=== PATIENT | female | born 1935 | race Caucasian/White ===

== ENCOUNTER 2023-11-20 01:37 | Emergency (ER) | payer MEDICARE, OTHER, SELFPAY ==
[2023-11-20] VITALS (8 sets, daily range): BP systolic 135–159; BP diastolic 66–94; BMI 27.0
--- NOTE | 2023-11-20 01:45 | ED.GENMED ---
History of Present Illness
<TAVO Mcnamara - Last Filed: 11/20/23 05:23>
General
Chief Complaint: Chest Pain
Time Seen by Provider: 11/20/23 01:39
History of Present Illness
History of Present Illness:
Pt is an 88 y/o female presenting with chest pain x1 hour. She describes it as a pressure over her right chest that radiates to her neck and back. She states it lasted for 20 minutes and went away on its own. She denies this ever happening in the
past. She states she has baseline shortness of breath but denies any increased shortness of breath. She states she always has swelling in her legs and it is currently baseline for her. She denies any dizziness, vision changes, cough, palpitations,
abdominal pain, nausea, vomiting.
Past History
<TAVO Mcnamara - Last Filed: 11/20/23 05:23>
Past History
ED Past Medical History: Asthma, Cancer (thyroid), Valvular disease, Hypothyroidism and Other (pulm HTN)
ED Past Surgical History: Orthopedic and Other (thyroidectomy, pelvic lift sx)
Social History
Tobacco: Non-smoker
Alcohol: None
Personal:
Living: with family
Employment: Retired
Family History
Family History: Other (n/c)
Phy Exam
<TAVO Mcnamara - Last Filed: 11/20/23 05:23>
Physical Exam
Physical Exam:
GENERAL: Alert , in no apparent distress
EYE: pupils equal and reactive
Throat: Airway intact, no exudates
NECK: Supple, no significant adenopathy.
CARDIAC: Irregular rhythm. No murmurs
LUNGS: Clear breath sounds bilaterally, no acute respiratory distress, no wheezes/rales/rhonchi
ABDOMEN: Soft, nondistended, nontender, no cvat
NEUROLOGICAL: Alert and oriented, no focal neuro deficits
SKIN: Warm and dry, skin intact.
MUSCULOSKELETAL: B/l LE edema. 2+ dorsalis pedis pulses
PSYCH: Normal and appropriate interaction.
Scores
<TAVO Mcnamara - Last Filed: 11/20/23 05:23>
Heart Score for Chest Pain Patients
STEMI patient?: No
History: Slightly or Non-Suspicious
ECG: Normal
Age: >/= 65 years
Risk Factors: >/= 3 Risk Factors or History of CAD
Troponin: </= Normal Limit
Heart Score for Chest Pain Patients: 4
Heart Score Risk: 20.3% MACE over next 6 weeks
Course
<TAVO Mcnamara - Last Filed: 11/20/23 05:23>
Orders/Labs/Results
Orders:
Orders
11/20/23 01:39
Electrocardiogram (*1) Urgent
Reason for Study: Chest Pain
EKG- Treatment ONCE
11/20/23 01:47
Complete Blood Count/With Diff Urgent
Comprehensive Metabolic Panel Urgent
Troponin I Urgent
11/20/23 02:09
CR Chest - 2 Views Urgent
Comment:
Reason For Exam: ches pain
11/20/23 04:00
Troponin I Urgent
Abnormal Lab Results
11/20/23
01:47
RBC 4.05 L 10^6/uL
(4.20-5.40)
MCH 32.3 H pg
(27.0-31.0)
BUN 25 H mg/dl
(7-17)
11/20/23 01:47
11/20/23 01:47
Vital Signs
Initial and Last Documented VS:
Initial Vital Signs
Pulse Ox
99
11/20/23 01:42
Last Documented Vital Signs
Temp Pulse Resp BP Pulse Ox
97.9 F 67 12 135/ 97
11/20/23 01:43 11/20/23 04:00 11/20/23 04:00 11/20/23 04:00 11/20/23 04:00
mc;Tal Almaguer DO - Last Filed: 11/20/23 04:56>
Orders/Labs/Results
Orders:
Orders
11/20/23 01:39
Electrocardiogram (*1) Urgent
Reason for Study: Chest Pain
EKG- Treatment ONCE
11/20/23 01:47
Complete Blood Count/With Diff Urgent
Comprehensive Metabolic Panel Urgent
Troponin I Urgent
11/20/23 02:09
CR Chest - 2 Views Urgent
Comment:
Reason For Exam: ches pain
11/20/23 04:00
Troponin I Urgent
Abnormal Lab Results
11/20/23
01:47
RBC 4.05 L 10^6/uL
(4.20-5.40)
MCH 32.3 H pg
(27.0-31.0)
BUN 25 H mg/dl
(7-17)
11/20/23 01:47
11/20/23 01:47
Vital Signs
Initial and Last Documented VS:
Initial Vital Signs
Pulse Ox
99
11/20/23 01:42
Last Documented Vital Signs
Temp Pulse Resp BP Pulse Ox
97.9 F 67 12 135/ 97
11/20/23 01:43 11/20/23 04:00 11/20/23 04:00 11/20/23 04:00 11/20/23 04:00
<TAVO Mcnamara - Last Filed: 11/20/23 05:23>
*Critical Care Note
Total Time (30-74mins, 75-104mins- exclusive of procedures): Not Applicable
ED Attending Note
<TAVO Mcnamara - Last Filed: 11/20/23 05:23>
-
Portions of this chart may have been created with voice recognition software.� Occasional wrong word or��sound alike� substitutions may have occurred due to the inherent limitations of voice recognition software.
<Tal Almaguer DO - Last Filed: 11/20/23 04:56>
ED Attending Note
Patient seen and examined by attending physician: Yes
I performed the substantive portion of visit, reviewed & personally made and approve the management plan that is documented in note by myself or KELSY.: Yes
ED Attending Note:
I have reviewed Sunny's note.
Patient had episode of chest discomfort that woke her from sleep. Pain lasted for maybe 10 minutes or so. No chest pain now. No history of coronary artery disease.
General: Awake, Alert, Oriented X3. No acute distress.
Vitals: unremarkable
Head: Atraumatic
Eyes: Pupils equal, EOMI
Throat: Airway intact, no exudates
Neck: Trachea midline
Lungs: Clear and equal b/l
Heart: Regular rate, no murmurs
Abd: Soft, Nontender, No pulsatile mass
Rectal:
Neuro: Cranial nerves intact, muscle strength equal bilaterally, cerebellar exam normal
Skin: Warm, dry, no rash
Extremities: pulses equal b/l, no edema
EKG: Normal sinus rhythm with PACs, no ischemic changes
Chest x-ray shows no acute disease by my personal evaluation
Will check troponin x 2.
Discharge Plan
Departure
Patient Disposition: Home (Routine Discharge)
Date of Disposition: 11/20/23
Time of Disposition: 04:55
Patient with high blood pressure during this ER visit?: Yes
Condition: Good
Discharge Problem:
Chest pain
Instructions: Chest Pain DCA Follow Up, BLOOD PRESSURE
Prescriptions:
No Action
thyroid (pork) [[place] Thyroid] 30 MG tablet
90 mg PO DAILY@0530
coenzyme Q10 50 MG tablet,chewable
1 tab PO BID
Eliquis 5 mg Tablet
5 mg PO BID
Jardiance 10 mg Tablet
10 mg PO DAILY
Cardio Plus
1 tab PO BID
Chaga
1 tab PO QPM
GS-Similase
1 tab PO DAILY
Pregnenole
10 mg PO DAILY
Zinc Plus Zilium
1 tab PO DAILY
garlic
1 tab PO BID
magnesium
1 tab PO DAILY@1500
magnesium
2 tab PO DAILY@2000
quercetin
250 mg PO DAILY
furosemide 40 MG tablet
40 mg PO BID
D-Ribose
0.25 tsp PO DAILY@1200
pantoprazole [pantoprazole] 40 mg tablet,delayed release (DR/EC)
40 mg PO DAILY Qty: 30 0RF
Rx Instructions:
Take for 30 days post procedure, then stop
Referrals:
UNKNOWN - PT NOT,INTERVIEWE [Family Provider] -
Interventions
Interventions:
*Risk Screen - Suicide Last Done: 11/20/23 01:43
*General Assessment Last Done: 11/20/23 01:43
*Neglect/Abuse Screening Last Done: 11/20/23 01:43
*ED COVID-19 Vaccine History Last Done: 11/20/23 01:43
ED- Cardiac Assessment Last Done: 11/20/23 02:40
Discharge Date and Time
Print Language: [place]
[2023-11-20 02:39] LABS: % Eosinophils 3.8 % (0-6); % Immature Granulocytes 0.1 % (0-0.5); % Lymphocytes 45.2 % (20.5-51.1); % Monocytes 7.4 % (1.7-9.3); % Neutrophils 42.5 % (42.2-75.2); Absolute Basophils 0.1 10^3/uL (0-0.2); Absolute Eosinophils 0.3 10^3/uL (0-0.7); Absolute Lymphocytes 3.1 10^3/uL (1.2-3.4); Absolute Monocytes 0.5 10^3/uL (0.1-0.6); Absolute Neutrophils 2.9 10^3/uL (1.4-6.5); Hematocrit 37.5 % (37.0-47.0); Hemoglobin 13.1 g/dL (12.0-16.0); Mean Corp Hgb Conc. 34.9 g/dL (33.0-37.0); Mean Corpuscular Hgb 32.3 pg (27.0-31.0); Mean Corpuscular Volume 92.6 fL (81.0-99.0); Mean Platelet Volume 10.4 fL (7.4-10.4); Nucleated Red Blood Cells % 0 %; Platelet Count 196 10^3/uL (130-400); Red Blood Cell Count 4.05 10^6/uL (4.20-5.40); Red Cell Dist. Width 13.3 % (11.5-14.5); White Blood Cell Count 6.9 10^3/uL (4.8-10.8)
[2023-11-20 02:54] LABS: ALT (SGPT) 25 U/L (0-35); AST (SGOT) 36 U/L (14-36); Albumin 3.9 g/dl (3.5-5.0); Alkaline Phosphatase 80 U/L (38-126); Blood Urea Nitrogen 25 mg/dl (7-17); Calcium 9.1 mg/dl (8.4-10.2); Carbon Dioxide 30 mmol/L (22-30); Chloride 102 mmol/L (98-107); Estimated Creatinine Clearance 44 ml/min; Glucose 93 mg/dl (70-99); Potassium 3.5 mmol/L (3.5-5.1); Sodium 139 mmol/L (135-145); Total Bilirubin 0.5 mg/dl (0.2-1.3); Total Protein 6.8 g/dl (6.3-8.2); eGFR > 60.00
[2023-11-20 03:05] LABS: Troponin I < 0.012 ng/ml
[2023-11-20 04:44] LABS: Troponin I < 0.012 ng/ml
== END 2023-11-20 05:30 | disposition home or self-care (01) ==
LOC: EMR 01:37
PROVIDERS: EMERGENCY PHYSICIAN Emergency Medicine
DX: R07.89 Other chest pain (principal); R60.0 Localized edema; I10 Essential (primary) hypertension
CPT/HCPCS: 99285; 71046; 80053; 84484; 85025; 93005